=== PATIENT | male | born 1960 | race Caucasian/White ===

== ENCOUNTER 2017-01-19 09:30 | Outpatient (RCR) | payer BC | END 2017-02-10 | disposition home or self-care (01) | LOC: CR 09:30 | PROVIDERS: ATTEND Internal Medicine Cardiovascular Disease | DX: I25.10 Atherosclerotic heart disease of native coronary artery without angina pectoris (principal); I10 Essential (primary) hypertension; Z95.5 Presence of coronary angioplasty implant and graft; R07.9 Chest pain, unspecified | CPT/HCPCS: 93798 ==